=== PATIENT | male | born 1990 | race Caucasian/White ===

== ENCOUNTER 2022-03-28 18:21 | Outpatient (CLI) | payer BC, SELFPAY ==
[2022-03-28 21:57] LABS: HIV 1/2/P24 Combo Screen* Negative (Negative)
[2022-03-28 23:12] LABS: Chlamydia DNA Amplified* NOT DETECTED (No Detected); GC DNA Amplified* NOT DETECTED (No Detected)
[2022-03-31 10:57] LABS: Rapid Plasma Reagin (RPR) Non Reactive (Non Reactive)
== END 2022-03-28 18:22 | disposition home or self-care (01) ==
PROVIDERS: PCP Family Medicine; Visit Provider Nurse Practitioner Family
DX: R21 Rash and other nonspecific skin eruption (principal); J02.9 Acute pharyngitis, unspecified
CPT/HCPCS: 86592; 86703; 87491; 87591

== ENCOUNTER 2024-10-23 11:03 | Outpatient (CLI) | payer BC, SELFPAY | END 2024-10-23 11:04 | disposition home or self-care (01) | PROVIDERS: PCP Family Medicine; Visit Provider Family Medicine | DX: F98.8 Other specified behavioral and emotional disorders with onset usually occurring in childhood and adolescence (principal); N46.8 Other male infertility; Z11.3 Encounter for screening for infections with a predominantly sexual mode of transmission; Z13.6 Encounter for screening for cardiovascular disorders | CPT/HCPCS: 80053; 80061; 86703; 87491; 87591 ==

== ENCOUNTER 2025-06-21 15:41 | Outpatient (CLI) | payer BC, SELFPAY | END 2025-06-21 15:42 | disposition home or self-care (01) | PROVIDERS: PCP Family Medicine; Visit Provider Family Medicine | DX: Z11.3 Encounter for screening for infections with a predominantly sexual mode of transmission (principal); R53.83 Other fatigue | CPT/HCPCS: 84270; 84402; 84403; 86592; 86703; 86803; 87340; 87491; 87529; 87591 ==